=== PATIENT | female | born 1985 | race Caucasian/White ===

== ENCOUNTER 2020-08-28 16:26 | Emergency (ER) | payer OTHER ==
[~2020-08-28] VITALS: Ht 170.2 cm; Wt 99.8 kg
[2020-08-28] MEDS ORDERED: SYNTHROID137 MCG (16:36)
[2020-08-28] MEDS ORDERED: MONTELUKAST SODI4 M1 (16:37)
[2020-08-28] MEDS ORDERED: UCERIS9 MG (16:37)
[2020-08-28] MEDS ORDERED: LEVOBUNOLOL HCL5 ML (16:37)
[2020-08-28] MEDS ORDERED: PRENA1 TRUE CO1 EACH (16:38)
[2020-08-28] MEDS ORDERED: CLARITIN5 MG (16:38)
== END 2020-08-28 21:50 | disposition home or self-care (01) ==
LOC: ER 16:26
DX: O20.0 Threatened abortion (principal)

== ENCOUNTER 2020-09-06 17:11 | Emergency (ER) | payer OTHER ==
[~2020-09-06] VITALS: Ht 167.6 cm; Wt 99.8 kg
[~2020-09-06 17:11] MED LIST: CLARITIN5 MG; LEVOBUNOLOL HCL5 ML; MONTELUKAST SODI4 M1; PRENA1 TRUE CO1 EACH; SYNTHROID137 MCG; UCERIS9 MG
[2020-09-06] MEDS ORDERED: MACROBID 100 M100 MG PO (19:41)
== END 2020-09-06 19:52 | disposition home or self-care (01) ==
LOC: ER 17:11
DX: O20.0 Threatened abortion (principal)

== ENCOUNTER 2021-01-10 09:23 | Emergency (ER) | payer OTHER ==
[~2021-01-10] VITALS: Ht 167.6 cm; Wt 106.6 kg
[~2021-01-10 09:23] MED LIST changes: +MACROBID 100 M100 MG PO
[2021-01-10] MEDS ORDERED: SYNTHROID150 MCG PO (09:36)
[2021-01-10] MEDS ORDERED: PULMICORT FLEX90 MCG IH (09:36)
[2021-01-10] MEDS ORDERED: XOPENEX HFA15 GM IH (09:37)
[2021-01-10] MEDS ORDERED: CLEOCIN HCL300 MG PO (10:27)
== END 2021-01-10 11:13 | disposition home or self-care (01) ==
LOC: ER 09:23
DX: O23.593 Infection of other part of genital tract in pregnancy, third trimester (principal)

== ENCOUNTER 2021-03-12 10:09 | Outpatient (CLI) | payer OTHER ==
[~2021-03-12 10:09] MED LIST changes: +CLEOCIN HCL300 MG PO; +PULMICORT FLEX90 MCG IH; +SYNTHROID150 MCG PO; +XOPENEX HFA15 GM IH
== END 2021-03-12 10:38 | disposition home or self-care (01) ==
LOC: NST 10:09
PROVIDERS: ATTEND Obstetrics & Gynecology
DX: Z34.83 Encounter for supervision of other normal pregnancy, third trimester (principal)

== ENCOUNTER 2021-03-15 13:27 | Inpatient (IN) | payer OTHER ==
[~2021-03-15] VITALS: Ht 167.6 cm; Wt 3.6 kg
[2021-03-17] MEDS ORDERED: LORATADINE10 MG (14:44)
[2021-03-20] MEDS ORDERED: KETO10TA2 PO (11:12)
== END 2021-03-20 12:28 | disposition home or self-care (01) | DRG 788 ==
LOC: OB/GYN 03-16 10:08 → O/R 03-17 06:06 → OB/GYN 03-17 08:26
PROVIDERS: ADMIT Obstetrics & Gynecology Maternal & Fetal Medicine; ATTEND Obstetrics & Gynecology Maternal & Fetal Medicine
PROC: 4A1HXFZ Monitoring of Products of Conception, Cardiac Rhythm, External Approach (ICD-10-PCS; 2021-03-17)
PROC: 10D00Z1 Extraction of Products of Conception, Low, Open Approach (ICD-10-PCS; principal; 2021-03-17 13:45)
DX: O65.8 Obstructed labor due to other maternal pelvic abnormalities (principal); O99.824 Streptococcus B carrier state complicating childbirth; Z3A.40 40 weeks gestation of pregnancy; Z37.0 Single live birth

== ENCOUNTER 2022-08-31 09:00 | Day surgery (SDC) | payer OTHER ==
[~2022-08-31 09:00] MED LIST changes: +ALLERGY RELIE15.8 ML NASAL; +KETO10TA2 PO; +LORATADINE10 MG; +MONTELUKAST SOD10 MG PO; +PEPCID40 MG PO; +ZEGERID 40 MG1 EACH PO
== END 2022-08-31 21:50 | disposition home or self-care (01) ==
LOC: CIR.AMB 09:00
PROVIDERS: ATTEND Obstetrics & Gynecology Gynecology
DX: D26.1 Other benign neoplasm of corpus uteri (principal); N93.9 Abnormal uterine and vaginal bleeding, unspecified; Z91.040 Latex allergy status; Z88.1 Allergy status to other antibiotic agents; Z20.822 Contact with and (suspected) exposure to COVID-19